=== PATIENT | male | born 1955 | race Caucasian/White ===

== ENCOUNTER 2019-10-07 09:16 | Emergency (ER) | payer MEDICARE ==
[~2019-10-07] VITALS: Ht 182.9 cm; Wt 79.5 kg
[~2019-10-07 09:16] MED LIST: MIRALAX3350 N1 PO
[2019-10-07] MEDS ORDERED: FAMOTIDINE20 M1 PO (09:54)
[2019-10-07] MEDS ORDERED: ABILIFY10 M1 PO (09:54)
[2019-10-07] MEDS ORDERED: XANAX0.5 MG PO (09:55)
[2019-10-07] MEDS ORDERED: MAGNESIUM500 M3 PO (09:55)
[2019-10-07] MEDS ORDERED: INDERAL 20MG TA20 MG PO (09:56)
[2019-10-07 11:22] LABS: ALBUMIN 4.2 g/dL (3.2-5.0); ALKALINE PHOSPHATASE 83 u/l (38-126); BUN 26 mg/dL (8-23); BUN/CREATININE RATIO 20 (12-20 (CALC)); CHLORIDE 108 mmol/l (95-108); CREATININE 1.3 mg/dL (0.7-1.3); GFR 56 ML/MIN (>=60 (CALC)); GFR FOR AFR.AMER. > 60 ML/MIN (>=60 (CALC)); MAGNESIUM 1.9 mg/dL (1.6-2.3); POTASSIUM 5.1 mmol/l (3.5-5.1); SGOT/AST 48 u/l (19-48); SODIUM 137 mmol/l (137-146); TOTAL PROTEIN 7.3 g/dL (6.3-8.2)
[2019-10-07 11:24] LABS: ANION GAP 13 (6-22 (CALC)); BILIRUBIN, TOTAL 1.8 mg/dL (0.0-1.4); CARBON DIOXIDE 21 mmol/l (22-30); HEMATOCRIT 51.7 % (39.0-50.0); IMMATURE GRANULOCYTES 0.4 % (0.0-5.0); MEAN CELL VOLUME 94.3 fL CALC (80.0-100.0); MEAN CORPUSCULAR HGB CONC 32.9 g/dL CAL (32.0-36.0); NEUT# 11.47 thou/uL (1.82-7.42); RED BLOOD COUNT 5.48 mill/uL (4.70-6.10); RED CELL DISTRI WIDTH 14.1 % (11.5-15.5)
[2019-10-07 12:16] LABS: URINE BILIRUBIN - DIPSTICK NEGATIVE (NEGATIVE); URINE BLOOD DIPSTICK SMALL (NEGATIVE); URINE COLOR YELLOW; URINE GLUCOSE - DIPSTICK NEGATIVE (NEGATIVE); URINE KETONE TRACE mg/dL (NEGATIVE); URINE LEUK ESTERASE TRACE (NEGATIVE); URINE NITRITE - DIPSTICK NEGATIVE (Negative); URINE PROTEIN - DIPSTICK NEGATIVE (NEG-TRACE); URINE SPECIFIC GRAVITY >=1.030; URINE UROBILINOGEN - DIPSTICK 0.2 E.U./dL (0.2)
[2019-10-07 12:23] LABS: URINE WBC 20-50 WBC/hpf (0-5)
[2019-10-07 12:24] LABS: URINE BACTERIA MANY hpf
[2019-10-07] MEDS ORDERED: ZOFRAN4 MG/TAB PO (12:33)
[2019-10-07] MEDS ORDERED: HYDROCO/APAP1 TA9 PO (12:33)
[2019-10-07] MEDS ORDERED: TAMSULOSIN0.4 MG PO (12:33)
[2019-10-07 12:50] VITALS: BP 103/58
== END 2019-10-07 12:50 | disposition home or self-care (01) ==
LOC: ED 09:16
PROVIDERS: Student in an Organized Health Care Education/Training Program
DX: N13.2 Hydronephrosis with renal and ureteral calculous obstruction (principal); I10 Essential (primary) hypertension; E83.42 Hypomagnesemia; F17.210 Nicotine dependence, cigarettes, uncomplicated; Z87.442 Personal history of urinary calculi

== ENCOUNTER 2019-10-14 16:19 | Emergency (ER) | payer MEDICARE ==
[~2019-10-14] VITALS: Ht 182.9 cm; Wt 70.0 kg
[~2019-10-14 16:19] MED LIST changes: +ABILIFY10 M1 PO; +FAMOTIDINE20 M1 PO; +HYDROCO/APAP1 TA9 PO; +INDERAL 20MG TA20 MG PO; +MAGNESIUM500 M3 PO; +TAMSULOSIN0.4 MG PO; +XANAX0.5 MG PO; +ZOFRAN4 MG/TAB PO
[2019-10-14 17:32] LABS: IMMATURE GRANULOCYTES 4.2 % (0.0-5.0); MEAN CELL VOLUME 91.8 fL CALC (80.0-100.0); MEAN CORPUSCULAR HGB 31.2 pG CALC (26.0-32.0); MEAN CORPUSCULAR HGB CONC 33.9 g/dL CAL (32.0-36.0); NEUT# 8.13 thou/uL (1.82-7.42); RED BLOOD COUNT 4.17 mill/uL (4.70-6.10); RED CELL DISTRI WIDTH 14.3 % (11.5-15.5)
[2019-10-14 17:36] LABS: HEMATOCRIT 38.3 % (39.0-50.0)
[2019-10-14 17:50] LABS: BILIRUBIN, TOTAL 1.5 mg/dL (0.0-1.4); BUN 17 mg/dL (8-23); BUN/CREATININE RATIO 18 (12-20 (CALC)); CARBON DIOXIDE 24 mmol/l (22-30); CHLORIDE 101 mmol/l (95-108); GFR > 60 ML/MIN (>=60 (CALC)); GFR FOR AFR.AMER. > 60 ML/MIN (>=60 (CALC)); LIPASE 172 u/l (23-300); SGOT/AST 70 u/l (19-48); SODIUM 132 mmol/l (137-146)
[2019-10-14 17:51] LABS: ALBUMIN 2.7 g/dL (3.2-5.0); ALKALINE PHOSPHATASE 148 u/l (38-126); ANION GAP 11 (6-22 (CALC)); POTASSIUM 3.6 mmol/l (3.5-5.1); TOTAL PROTEIN 5.4 g/dL (6.3-8.2)
[2019-10-14 18:51] LABS: URINE BILIRUBIN - DIPSTICK NEGATIVE (NEGATIVE); URINE BLOOD DIPSTICK NEGATIVE (NEGATIVE); URINE COLOR YELLOW; URINE GLUCOSE - DIPSTICK NEGATIVE (NEGATIVE); URINE KETONE NEGATIVE (NEGATIVE); URINE LEUK ESTERASE TRACE (NEGATIVE); URINE NITRITE - DIPSTICK NEGATIVE (Negative); URINE PROTEIN - DIPSTICK 30 mg/dL (NEG-TRACE); URINE SPECIFIC GRAVITY 1.015; URINE UROBILINOGEN - DIPSTICK 0.2 E.U./dL (0.2)
[2019-10-14 18:53] LABS: URINE RBC 0-2 RBC/hpf (0-5)
[2019-10-14 21:20] VITALS: BP 110/70
== END 2019-10-14 21:20 | disposition home or self-care (01) ==
LOC: ED 16:19
PROVIDERS: Family Medicine
DX: R10.31 Right lower quadrant pain (principal); T80.89XA Other complications following infusion, transfusion and therapeutic injection, initial encounter; I10 Essential (primary) hypertension; K21.9 Gastro-esophageal reflux disease without esophagitis; F17.200 Nicotine dependence, unspecified, uncomplicated; Y84.8 Other medical procedures as the cause of abnormal reaction of the patient, or of later complication, without mention of misadventure at the time of the procedure
CPT/HCPCS: Q9967

== ENCOUNTER 2020-09-13 06:42 | Emergency (ER) | payer MEDICARE ==
[~2020-09-13] VITALS: Ht 182.9 cm; Wt 75.6 kg
[2020-09-13] MEDS ORDERED: AMBIEN5 MG PO (07:16)
[2020-09-13 07:36] LABS: HEMATOCRIT 44.9 % (39.0-50.0); HEMOGLOBIN 14.6 g/dl (14.0-18.0); IMMATURE GRANULOCYTES 0.3 % (0.0-5.0); MEAN CELL VOLUME 95.9 fL CALC (80.0-100.0); MEAN CORPUSCULAR HGB 31.2 pG CALC (26.0-32.0); MEAN CORPUSCULAR HGB CONC 32.5 g/dL CAL (32.0-36.0); NEUT# 4.53 thou/uL (1.82-7.42); RED BLOOD COUNT 4.68 mill/uL (4.70-6.10); RED CELL DISTRI WIDTH 14.2 % (11.5-15.5)
[2020-09-13 08:05] LABS: ALBUMIN 3.4 g/dL (3.2-5.0); ALKALINE PHOSPHATASE 64 u/l (38-126); ANION GAP 12 (6-22 (CALC)); BUN 17 mg/dL (8-23); BUN/CREATININE RATIO 25 (12-20 (CALC)); CARBON DIOXIDE 23 mmol/l (22-30); CHLORIDE 110 mmol/l (95-108); CREATININE 0.7 mg/dL (0.7-1.3); GFR > 60 ML/MIN (>=60 (CALC)); GFR FOR AFR.AMER. > 60 ML/MIN (>=60 (CALC)); POTASSIUM 3.8 mmol/l (3.5-5.1); SGOT/AST 42 u/l (19-48); SODIUM 140 mmol/l (137-146); TOTAL PROTEIN 6.4 g/dL (6.3-8.2)
[2020-09-13 08:12] LABS: URINE BILIRUBIN - DIPSTICK NEGATIVE (NEGATIVE); URINE BLOOD DIPSTICK NEGATIVE (NEGATIVE); URINE COLOR YELLOW; URINE GLUCOSE - DIPSTICK NEGATIVE (NEGATIVE); URINE KETONE NEGATIVE (NEGATIVE); URINE LEUK ESTERASE TRACE (NEGATIVE); URINE PROTEIN - DIPSTICK NEGATIVE (NEG-TRACE); URINE SPECIFIC GRAVITY 1.025; URINE UROBILINOGEN - DIPSTICK 0.2 E.U./dL (0.2)
[2020-09-13 08:16] LABS: URINE NITRITE - DIPSTICK NEGATIVE (Negative)
[2020-09-13] MEDS ORDERED: ULTRAM50 M1 PO (08:19)
[2020-09-13 08:27] VITALS: BP 113/60
== END 2020-09-13 08:27 | disposition home or self-care (01) ==
LOC: ED 06:42
PROVIDERS: Emergency Medicine
DX: K40.90 Unilateral inguinal hernia, without obstruction or gangrene, not specified as recurrent (principal); I10 Essential (primary) hypertension; K21.9 Gastro-esophageal reflux disease without esophagitis; F41.9 Anxiety disorder, unspecified; F17.210 Nicotine dependence, cigarettes, uncomplicated

== ENCOUNTER 2020-12-07 17:21 | Emergency (ER) | payer MEDICARE ==
[~2020-12-07] VITALS: Ht 182.9 cm; Wt 70.5 kg
[~2020-12-07 17:21] MED LIST changes: +AMBIEN5 MG PO; +ULTRAM50 M1 PO
[2020-12-07 20:39] LABS: IMMATURE GRANULOCYTES 1.3 % (0.0-5.0); MEAN CORPUSCULAR HGB 29.8 pG CALC (26.0-32.0); MEAN CORPUSCULAR HGB CONC 33.3 g/dL CAL (32.0-36.0); NEUT# 10.58 thou/uL (1.82-7.42); RED BLOOD COUNT 3.86 mill/uL (4.70-6.10); RED CELL DISTRI WIDTH 16.4 % (11.5-15.5)
[2020-12-07 20:41] LABS: HEMATOCRIT 34.5 % (39.0-50.0); HEMOGLOBIN 11.5 g/dl (14.0-18.0); MEAN CELL VOLUME 89.4 fL CALC (80.0-100.0)
[2020-12-07 20:56] LABS: ALBUMIN 3.2 g/dL (3.2-5.0); BUN 17 mg/dL (8-23); BUN/CREATININE RATIO 23 (12-20 (CALC)); CARBON DIOXIDE 24 mmol/l (22-30); CHLORIDE 101 mmol/l (95-108); CREATININE 0.7 mg/dL (0.7-1.3); GFR > 60 ML/MIN (>=60 (CALC)); GFR FOR AFR.AMER. > 60 ML/MIN (>=60 (CALC)); POTASSIUM 3.7 mmol/l (3.5-5.1); TOTAL PROTEIN 6.8 g/dL (6.3-8.2)
[2020-12-07 20:57] LABS: ALKALINE PHOSPHATASE 149 u/l (38-126); ANION GAP 9 (6-22 (CALC)); BILIRUBIN, TOTAL 2.2 mg/dL (0.0-1.4); SGOT/AST 136 u/l (19-48); SODIUM 130 mmol/l (137-146)
[2020-12-07 23:02] LABS: URINE BLOOD DIPSTICK NEGATIVE (NEGATIVE); URINE GLUCOSE - DIPSTICK NEGATIVE (NEGATIVE); URINE KETONE NEGATIVE (NEGATIVE); URINE LEUK ESTERASE TRACE (NEGATIVE); URINE PROTEIN - DIPSTICK NEGATIVE (NEG-TRACE)
[2020-12-07 23:04] LABS: URINE BILIRUBIN - DIPSTICK SMALL (NEGATIVE); URINE COLOR AMBER
[2020-12-07 23:05] LABS: URINE NITRITE - DIPSTICK POSITIVE (Negative)
[2020-12-07 23:09] LABS: URINE BACTERIA FEW hpf
[2020-12-07] MEDS ORDERED: BACTRIM DS1 TAB PO (23:28)
[2020-12-07] MEDS ORDERED: CELEBREX200 MG PO (23:28)
[2020-12-07 23:38] VITALS: BP 98/51
== END 2020-12-08 06:45 | disposition home or self-care (01) ==
LOC: ED 17:21
PROVIDERS: Family Medicine
DX: S39.012A Strain of muscle, fascia and tendon of lower back, initial encounter (principal); N39.0 Urinary tract infection, site not specified; I10 Essential (primary) hypertension; K21.9 Gastro-esophageal reflux disease without esophagitis; F41.9 Anxiety disorder, unspecified; F17.200 Nicotine dependence, unspecified, uncomplicated; B95.61 Methicillin susceptible Staphylococcus aureus infection as the cause of diseases classified elsewhere; X50.0XXA Overexertion from strenuous movement or load, initial encounter

== ENCOUNTER 2020-12-19 10:40 | Emergency (ER) | payer MEDICARE ==
[~2020-12-19] VITALS: Ht 182.9 cm; Wt 80.0 kg
[~2020-12-19 10:40] MED LIST changes: +BACTRIM DS1 TAB PO; +CELEBREX200 MG PO
[2020-12-19 13:06] LABS: HEMATOCRIT 38.6 % (39.0-50.0); HEMOGLOBIN 11.9 g/dl (14.0-18.0); IMMATURE GRANULOCYTES 0.9 % (0.0-5.0); MEAN CELL VOLUME 95.3 fL CALC (80.0-100.0); MEAN CORPUSCULAR HGB 29.4 pG CALC (26.0-32.0); MEAN CORPUSCULAR HGB CONC 30.8 g/dL CAL (32.0-36.0); NEUT# 12.66 thou/uL (1.82-7.42); RED BLOOD COUNT 4.05 mill/uL (4.70-6.10); RED CELL DISTRI WIDTH 17.7 % (11.5-15.5)
[2020-12-19 13:27] LABS: ALBUMIN 3.2 g/dL (3.2-5.0); ALKALINE PHOSPHATASE 158 u/l (38-126); ANION GAP 15 (6-22 (CALC)); BILIRUBIN, TOTAL 1.7 mg/dL (0.0-1.4); BUN 17 mg/dL (8-23); BUN/CREATININE RATIO 27 (12-20 (CALC)); CARBON DIOXIDE 17 mmol/l (22-30); CHLORIDE 106 mmol/l (95-108); CREATININE 0.6 mg/dL (0.7-1.3); GFR > 60 ML/MIN (>=60 (CALC)); GFR FOR AFR.AMER. > 60 ML/MIN (>=60 (CALC)); POTASSIUM 5.1 mmol/l (3.5-5.1); SGOT/AST 59 u/l (19-48); SODIUM 133 mmol/l (137-146)
[2020-12-19] MEDS ORDERED: TRAMADOL HYDROC50 M1 PO (14:52)
[2020-12-19 15:30] VITALS: BP 108/56
== END 2020-12-19 15:30 | disposition home or self-care (01) ==
LOC: ED 10:40
DX: R18.8 Other ascites (principal); D72.829 Elevated white blood cell count, unspecified; M54.59 Other low back pain; I10 Essential (primary) hypertension; K21.9 Gastro-esophageal reflux disease without esophagitis; F41.9 Anxiety disorder, unspecified; F17.200 Nicotine dependence, unspecified, uncomplicated
CPT/HCPCS: Q9967

== ENCOUNTER 2020-12-28 16:11 | Emergency (ER) | payer MEDICARE ==
[~2020-12-28] VITALS: Ht 182.9 cm; Wt 72.0 kg
[~2020-12-28 16:11] MED LIST changes: +TRAMADOL HYDROC50 M1 PO
[2020-12-28 17:16] LABS: GFR > 60 ML/MIN (>=60 (CALC)); GFR FOR AFR.AMER. > 60 ML/MIN (>=60 (CALC))
[2020-12-28 17:24] LABS: HEMATOCRIT 37.4 % (39.0-50.0); IMMATURE GRANULOCYTES 0.5 % (0.0-5.0); MEAN CELL VOLUME 92.1 fL CALC (80.0-100.0); MEAN CORPUSCULAR HGB 29.6 pG CALC (26.0-32.0); MEAN CORPUSCULAR HGB CONC 32.1 g/dL CAL (32.0-36.0); NEUT# 16.59 thou/uL (1.82-7.42); RED BLOOD COUNT 4.06 mill/uL (4.70-6.10); RED CELL DISTRI WIDTH 16.9 % (11.5-15.5)
[2020-12-28 17:44] LABS: ALKALINE PHOSPHATASE 167 u/l (38-126); BILIRUBIN, TOTAL 2.1 mg/dL (0.0-1.4); BUN 25 mg/dL (8-23); BUN/CREATININE RATIO 35 (12-20 (CALC)); CHLORIDE 101 mmol/l (95-108); CREATININE 0.7 mg/dL (0.7-1.3); GFR > 60 ML/MIN (>=60 (CALC)); GFR FOR AFR.AMER. > 60 ML/MIN (>=60 (CALC)); LIPASE 70 u/l (23-300); POTASSIUM 4.4 mmol/l (3.5-5.1); SGOT/AST 63 u/l (19-48); SODIUM 133 mmol/l (137-146); TOTAL PROTEIN 7.5 g/dL (6.3-8.2)
[2020-12-28 17:46] LABS: ANION GAP 11 (6-22 (CALC)); CARBON DIOXIDE 25 mmol/l (22-30)
[2020-12-28 18:30] VITALS: BP 118/56
[2020-12-29] MEDS ORDERED: ALDACTONE25 MG PO (12:18)
[2020-12-29] MEDS ORDERED: LASIX 20 MG TAB20 MG PO (12:18)
== END 2020-12-28 19:38 | disposition left against medical advice (07) ==
LOC: ED 16:11
PROVIDERS: Family Medicine
DX: K65.9 Peritonitis, unspecified (principal); K74.60 Unspecified cirrhosis of liver; B19.20 Unspecified viral hepatitis C without hepatic coma; F10.10 Alcohol abuse, uncomplicated; I10 Essential (primary) hypertension; K21.9 Gastro-esophageal reflux disease without esophagitis; F32.A Depression, unspecified; F41.9 Anxiety disorder, unspecified; F17.200 Nicotine dependence, unspecified, uncomplicated; Z91.19 Patient's noncompliance with other medical treatment and regimen; Z20.822 Contact with and (suspected) exposure to COVID-19

== ENCOUNTER 2020-12-29 07:16 | Observation (INO) | payer MEDICARE ==
[~2020-12-29] VITALS: Ht 182.9 cm; Wt 70.5 kg
[2020-12-29 09:21] LABS: HEMATOCRIT 32.4 % (39.0-50.0); HEMOGLOBIN 10.3 g/dl (14.0-18.0); IMMATURE GRANULOCYTES 0.7 % (0.0-5.0); MEAN CORPUSCULAR HGB 29.3 pG CALC (26.0-32.0); MEAN CORPUSCULAR HGB CONC 31.8 g/dL CAL (32.0-36.0); NEUT# 16.22 thou/uL (1.82-7.42); RED BLOOD COUNT 3.52 mill/uL (4.70-6.10); RED CELL DISTRI WIDTH 16.9 % (11.5-15.5)
[2020-12-29 09:28] LABS: ALBUMIN 2.6 g/dL (3.2-5.0); ALKALINE PHOSPHATASE 151 u/l (38-126); ANION GAP 8 (6-22 (CALC)); BILIRUBIN, TOTAL 1.5 mg/dL (0.0-1.4); BUN 24 mg/dL (8-23); BUN/CREATININE RATIO 38 (12-20 (CALC)); CARBON DIOXIDE 27 mmol/l (22-30); CHLORIDE 100 mmol/l (95-108); CREATININE 0.6 mg/dL (0.7-1.3); GFR > 60 ML/MIN (>=60 (CALC)); GFR FOR AFR.AMER. > 60 ML/MIN (>=60 (CALC)); LIPASE 168 u/l (23-300); SGOT/AST 54 u/l (19-48); SODIUM 131 mmol/l (137-146); TOTAL PROTEIN 6.7 g/dL (6.3-8.2)
[2020-12-29 10:15] LABS: URINE BILIRUBIN - DIPSTICK NEGATIVE (NEGATIVE); URINE BLOOD DIPSTICK TRACE-INTACT (NEGATIVE); URINE COLOR YELLOW; URINE GLUCOSE - DIPSTICK NEGATIVE (NEGATIVE); URINE KETONE NEGATIVE (NEGATIVE); URINE LEUK ESTERASE NEGATIVE (NEGATIVE); URINE PROTEIN - DIPSTICK NEGATIVE (NEG-TRACE); URINE UROBILINOGEN - DIPSTICK 0.2 E.U./dL (0.2)
[2020-12-29 10:31] LABS: URINE NITRITE - DIPSTICK NEGATIVE (Negative)
[2020-12-29] MEDS ORDERED: LASIX 20 MG TAB20 MG PO (12:18)
[2020-12-29] MEDS ORDERED: ALDACTONE25 MG PO (12:18)
[2020-12-29 15:25] VITALS: BP 107/53
[2021-01-05] MEDS ORDERED: ULTRAM50 M1 PO (16:17)
[2021-01-05] MEDS ORDERED: MIRALAX17 GM/SCOO PO (16:22)
== END 2020-12-29 15:35 | disposition home or self-care (01) ==
LOC: ED 07:16 → ED-I 07:51 → ED 07:51 → ED-I 10:11 → ED 10:36 → MS2 10:37 → ED-I 12:15
PROVIDERS: Family Medicine; ADMIT Hospitalist; ATTEND Hospitalist
PROC: 0W9G3ZZ Drainage of Peritoneal Cavity, Percutaneous Approach (ICD-10-PCS; principal; 2020-12-29)
PROC: BW40ZZZ Ultrasonography of Abdomen (ICD-10-PCS; 2020-12-29)
DX: K74.69 Other cirrhosis of liver (principal); R18.8 Other ascites; B19.20 Unspecified viral hepatitis C without hepatic coma; I10 Essential (primary) hypertension; K21.9 Gastro-esophageal reflux disease without esophagitis; F41.9 Anxiety disorder, unspecified; F32.A Depression, unspecified; Z20.822 Contact with and (suspected) exposure to COVID-19

== ENCOUNTER 2021-03-22 14:56 | Observation (INO) | payer MEDICARE ==
[~2021-03-22] VITALS: Ht 182.9 cm; Wt 60.0 kg
[~2021-03-22 14:56] MED LIST changes: +ALDACTONE25 MG PO; +LASIX 20 MG TAB20 MG PO; +MIRALAX17 GM/SCOO PO
--- NOTE | 2021-03-22 14:56 | NUR ---
PT TO ROOM 6 VIA WC ABLE TO STAND AND TRANSFER SELF WITHOUT ASSIST.
[2021-03-22 16:13] LABS: HEMATOCRIT 34.1 % (39.0-50.0); HEMOGLOBIN 10.7 g/dl (14.0-18.0); IMMATURE GRANULOCYTES 0.5 % (0.0-5.0); MEAN CELL VOLUME 92.4 fL CALC (80.0-100.0); MEAN CORPUSCULAR HGB CONC 31.4 g/dL CAL (32.0-36.0); NEUT# 5.8 thou/uL (1.82-7.42); RED BLOOD COUNT 3.69 mill/uL (4.70-6.10); RED CELL DISTRI WIDTH 13.5 % (11.5-15.5)
[2021-03-22 16:30] LABS: INTERNATIONAL NORMALIZED RATIO 1.1 RATIO (0.7-1.3); PROTHROMBIN TIME 11.6 SECONDS (9.0-12.5)
[2021-03-22 16:41] LABS: ALBUMIN 3.3 g/dL (3.2-5.0); ALKALINE PHOSPHATASE 131 u/l (38-126); AMYLASE 72 u/l (30-110); ANION GAP 9 (6-22 (CALC)); BILIRUBIN, TOTAL 0.9 mg/dL (0.0-1.4); BUN 18 mg/dL (8-23); BUN/CREATININE RATIO 29 (12-20 (CALC)); CARBON DIOXIDE 27 mmol/l (22-30); CHLORIDE 106 mmol/l (95-108); CREATININE 0.6 mg/dL (0.7-1.3); GFR > 60 ML/MIN (>=60 (CALC)); GFR FOR AFR.AMER. > 60 ML/MIN (>=60 (CALC)); POTASSIUM 4.1 mmol/l (3.5-5.1); SGOT/AST 25 u/l (19-48); SODIUM 137 mmol/l (137-146); TOTAL PROTEIN 7.7 g/dL (6.3-8.2)
[2021-03-22 16:53] LABS: MYOGLOBIN 13 ng/mL (0 - 121)
--- NOTE | 2021-03-22 17:18 | NUR ---
PT DENIES COMPLAINTS. RESPS EVEN,UNLABBORED
--- NOTE | 2021-03-22 18:24 | NUR ---
PLAN OF CARE UPDATED WITH PT. RESPS EVEN, UNLABBORED.
--- NOTE | 2021-03-22 20:21 | NUR ---
REPORT RECEIVED FROM Marlen RODRÍGUEZ RN
--- NOTE | 2021-03-22 20:22 | NUR ---
PT RESTING. AWARE OF ADMISSION. UP TO BR. PT RETURNED TO ROOM. STATES PAIN IS A 07/25. DR NOTIFIED OF PAIN. TORADOL ORDERED. REPORT CALLED TO RICHARD NAVARRO/[facility].
[2021-03-22 20:30] VITALS: BP 130/90
--- NOTE | 2021-03-22 20:30 | NUR ---
TO FLOOR VIA W/C WITH PORT MONITOR. A/O. FEELS BETTER.
--- NOTE | 2021-03-22 20:50 | NUR ---
PT ARRIVED TO FLOOR VIA WHEELCAHIR ACCOMPANIED BY Dinh VILA LPN.
[2021-03-23] VITALS: BP 100/65
--- NOTE | 2021-03-23 00:15 | NUR ---
PT REQUESTING SLEEPING PILL AT THIS TIME. ADMISTERED PER EMAR.
[2021-03-23 04:00] VITALS: BP 136/73
[2021-03-23 05:48] LABS: HEMATOCRIT 32.5 % (39.0-50.0); HEMOGLOBIN 10.2 g/dl (14.0-18.0); MEAN CELL VOLUME 91.8 fL CALC (80.0-100.0); MEAN CORPUSCULAR HGB 28.8 pG CALC (26.0-32.0); MEAN CORPUSCULAR HGB CONC 31.4 g/dL CAL (32.0-36.0); RED BLOOD COUNT 3.54 mill/uL (4.70-6.10); RED CELL DISTRI WIDTH 13.4 % (11.5-15.5)
[2021-03-23 06:09] LABS: ANION GAP 8 (6-22 (CALC)); BUN 18 mg/dL (8-23); BUN/CREATININE RATIO 28 (12-20 (CALC)); CARBON DIOXIDE 23 mmol/l (22-30); CHLORIDE 110 mmol/l (95-108); CREATININE 0.6 mg/dL (0.7-1.3); GFR > 60 ML/MIN (>=60 (CALC)); GFR FOR AFR.AMER. > 60 ML/MIN (>=60 (CALC)); POTASSIUM 4.1 mmol/l (3.5-5.1); SODIUM 137 mmol/l (137-146)
--- NOTE | 2021-03-23 06:14 | NUR ---
PATIENT SLEEPING SOUNDLY. NO APAPRENT DISTRESS A THIS TIME.
[2021-03-23 07:43] VITALS: BP 110/58
--- NOTE | 2021-03-23 07:53 | NUR ---
PT AWAKE SITTING SEMI FOWELRS UPON ENTERING ROOM. ASSESSMENT AND VITALS ALLOWED AT THIS TIME. LUNG SOUNDS DIMININISHED UPPER/LOWER LOBES. BREATHING IS EVEN AND UNLABORED. HEART SOUNDS ARE REGULAR. PT DENIES CHEST PAIN AT THIS ITME. BOWEL SOUNDS ACTIVE X4. IV LOCATED ON THE LAC 22G, SALINE LOCKED. FLUSHED WITH NO RESISTANCE. TELE MONITOR IN PLACE, CONTINOUS MONITORING BY ED. CALL LIGHT AND PERSONAL ITEMS ARE WITHIN REACH. FALL PRECAUTIONS IN PLACE.
[2021-03-23] MEDS ORDERED: MAGNESIUM500 M1 PO (08:36)
[2021-03-23 12:12] VITALS: BP 100/60
--- NOTE | 2021-03-23 12:15 | NUR ---
PT SITTING ON BED EATING LUNCH AT THIS TIME. STATES FEELING CHEST DISCOMFORT ONLY WHEN BREATHING. TELE MONITOR IS IN PLACE, CONTINOUS MONITORING BY ED. IV PATENT. FALL/SAFTEY PRECAUTIONS ARE IN PLACE. STATES NO OTHER NEEDS AT THIS TIME. CALL LIGHT WITHIN REACH.
[2021-03-23] MEDS ORDERED: ASPIRIN EC LOW81 MG PO (12:29)
--- NOTE | 2021-03-23 14:14 | NUR ---
Discharge instructions given. Patient verbalizes understanding of same. Discharged in stable condition via Wheelchair to Home with RICHARD LUNDY (PUMPER HEAD). All belongings sent with pt. IV REMOVED EVERYTHING INTACT. GAVE A COPY OF INSTRUCTIONS. PT CALLED FOR CAB ABLE TO PAY FOR SELF. UNDERSTANDS TO COME BACK IF WORSENING COMPLAINTS
== END 2021-03-23 14:15 | disposition home or self-care (01) ==
LOC: ED 14:56 → MS2 19:26 → ED 19:29 → ED-I 19:29 → ED 19:30 → ED-I 19:30 → MS2 03-23 14:15
PROVIDERS: Family Medicine; ADMIT Hospitalist; ATTEND Hospitalist
DX: R07.9 Chest pain, unspecified (principal); R05.9 Cough, unspecified; I10 Essential (primary) hypertension; F41.9 Anxiety disorder, unspecified; K21.9 Gastro-esophageal reflux disease without esophagitis; F32.A Depression, unspecified; E83.42 Hypomagnesemia; B19.20 Unspecified viral hepatitis C without hepatic coma; K74.60 Unspecified cirrhosis of liver; F17.200 Nicotine dependence, unspecified, uncomplicated; Z20.822 Contact with and (suspected) exposure to COVID-19
CPT/HCPCS: J1650

== ENCOUNTER 2021-04-06 14:39 | Emergency (ER) | payer MEDICARE ==
[~2021-04-06] VITALS: Ht 182.9 cm; Wt 60.0 kg
[~2021-04-06 14:39] MED LIST changes: +ASPIRIN EC LOW81 MG PO; +MAGNESIUM500 M1 PO
[2021-04-06 18:34] LABS: HEMATOCRIT 27.5 % (39.0-50.0); HEMOGLOBIN 8.7 g/dl (14.0-18.0); IMMATURE GRANULOCYTES 0.5 % (0.0-5.0); MEAN CELL VOLUME 89.9 fL CALC (80.0-100.0); MEAN CORPUSCULAR HGB 28.4 pG CALC (26.0-32.0); MEAN CORPUSCULAR HGB CONC 31.6 g/dL CAL (32.0-36.0); NEUT# 6.77 thou/uL (1.82-7.42); RED BLOOD COUNT 3.06 mill/uL (4.70-6.10); RED CELL DISTRI WIDTH 13.9 % (11.5-15.5)
[2021-04-06 18:52] LABS: ALKALINE PHOSPHATASE 111 u/l (38-126); ANION GAP 11 (6-22 (CALC)); BILIRUBIN, TOTAL 1.2 mg/dL (0.0-1.4); BUN/CREATININE RATIO 60 (12-20 (CALC)); CARBON DIOXIDE 24 mmol/l (22-30); CHLORIDE 107 mmol/l (95-108); CREATININE 0.7 mg/dL (0.7-1.3); GFR > 60 ML/MIN (>=60 (CALC)); GFR FOR AFR.AMER. > 60 ML/MIN (>=60 (CALC)); POTASSIUM 4.2 mmol/l (3.5-5.1); SGOT/AST 24 u/l (19-48); SODIUM 138 mmol/l (137-146); TOTAL PROTEIN 7.1 g/dL (6.3-8.2)
[2021-04-06 18:53] LABS: BUN 42 mg/dL (8-23)
[2021-04-06] MEDS ORDERED: FEOSOL45 MG PO (22:29)
[2021-04-06 22:54] VITALS: BP 131/69
--- NOTE | 2021-04-09 07:34 | NUR ---
PRELIMINARY BLOOD CULTURE SHOWS GRAM (+) COCCI IN 1/4 VIALS, MONITOR FOR FINAL RESULTS PER . FINAL RESULTS SHOW MRSA, RESULTS CALLED TO WHO ADVISED TO HAVE PATIENT RETURN TO THE ER FOR TREATMENT. THE PATIENT WAS CONTACTED AT 0730AM ON 04/09/21 AND REPORTED FEELING WORSE I ADVISED THE PATIENT TO RETURN TO THE ED [facility].
== END 2021-04-06 22:54 | disposition home or self-care (01) ==
LOC: ED 14:39
PROVIDERS: Family Medicine
DX: D64.9 Anemia, unspecified (principal); I10 Essential (primary) hypertension; F41.9 Anxiety disorder, unspecified; B19.20 Unspecified viral hepatitis C without hepatic coma; K21.9 Gastro-esophageal reflux disease without esophagitis; K70.30 Alcoholic cirrhosis of liver without ascites; F17.200 Nicotine dependence, unspecified, uncomplicated; Z20.822 Contact with and (suspected) exposure to COVID-19; R07.9 Chest pain, unspecified; R06.02 Shortness of breath

== ENCOUNTER 2021-04-09 08:53 | Emergency (ER) | payer MEDICARE ==
[~2021-04-09] VITALS: Ht 182.9 cm; Wt 60.0 kg
[~2021-04-09 08:53] MED LIST changes: +FEOSOL45 MG PO
[2021-04-09 10:51] LABS: HEMATOCRIT 22.9 % (39.0-50.0); HEMOGLOBIN 7.1 g/dl (14.0-18.0); IMMATURE GRANULOCYTES 0.4 % (0.0-5.0); MEAN CELL VOLUME 90.9 fL CALC (80.0-100.0); MEAN CORPUSCULAR HGB 28.2 pG CALC (26.0-32.0); NEUT# 1.85 thou/uL (1.82-7.42); RED BLOOD COUNT 2.52 mill/uL (4.70-6.10); RED CELL DISTRI WIDTH 14.1 % (11.5-15.5)
[2021-04-09 10:56] LABS: INTERNATIONAL NORMALIZED RATIO 1.2 RATIO (0.7-1.3); PROTHROMBIN TIME 12.5 SECONDS (9.0-12.5)
[2021-04-09 11:01] LABS: ALBUMIN 2.4 g/dL (3.2-5.0); ALKALINE PHOSPHATASE 90 u/l (38-126); AMYLASE 58 u/l (30-110); ANION GAP 7 (6-22 (CALC)); BILIRUBIN, TOTAL 0.5 mg/dL (0.0-1.4); BUN 19 mg/dL (8-23); BUN/CREATININE RATIO 27 (12-20 (CALC)); C-REACTIVE PROTEIN 2.9 mg/dL (0-0.9); CARBON DIOXIDE 26 mmol/l (22-30); CHLORIDE 109 mmol/l (95-108); CREATININE 0.7 mg/dL (0.7-1.3); GFR > 60 ML/MIN (>=60 (CALC)); GFR FOR AFR.AMER. > 60 ML/MIN (>=60 (CALC)); LIPASE 109 u/l (23-300); MAGNESIUM 1.8 mg/dL (1.6-2.3); POTASSIUM 3.1 mmol/l (3.5-5.1); SGOT/AST 27 u/l (19-48); SODIUM 139 mmol/l (137-146); TOTAL PROTEIN 5.9 g/dL (6.3-8.2)
[2021-04-09 11:28] LABS: TSH, 3RD GENERATION 2.42 uIU/mL (0.47 - 4.68)
[2021-04-09 13:12] VITALS: BP 100/55
[2021-04-09 13:16] LABS: URINE BILIRUBIN - DIPSTICK NEGATIVE (NEGATIVE); URINE BLOOD DIPSTICK NEGATIVE (NEGATIVE); URINE COLOR YELLOW; URINE GLUCOSE - DIPSTICK NEGATIVE (NEGATIVE); URINE KETONE NEGATIVE (NEGATIVE); URINE LEUK ESTERASE NEGATIVE (NEGATIVE); URINE PROTEIN - DIPSTICK NEGATIVE (NEG-TRACE); URINE SPECIFIC GRAVITY 1.025; URINE UROBILINOGEN - DIPSTICK 0.2 E.U./dL (0.2)
[2021-04-09 13:18] VITALS: BP 100/55
[2021-04-09 13:18] LABS: URINE NITRITE - DIPSTICK NEGATIVE (Negative)
[2021-04-09 13:27] VITALS: BP 93/55
[2021-04-09 13:36] VITALS: BP 100/59
[2021-04-09 14:25] VITALS: BP 95/53
[2021-04-09 15:18] VITALS: BP 95/53
== END 2021-04-09 14:45 ==
LOC: ED 08:53 → ED-I 10:08 → ED 14:45
PROVIDERS: Emergency Medicine
DX: R78.81 Bacteremia (principal); D61.818 Other pancytopenia; E87.6 Hypokalemia; R19.5 Other fecal abnormalities; I10 Essential (primary) hypertension; F41.9 Anxiety disorder, unspecified; F32.A Depression, unspecified; K21.9 Gastro-esophageal reflux disease without esophagitis; R62.7 Adult failure to thrive; K70.30 Alcoholic cirrhosis of liver without ascites; F17.200 Nicotine dependence, unspecified, uncomplicated; Z68.1 Body mass index [BMI] 19.9 or less, adult; Z86.19 Personal history of other infectious and parasitic diseases; Z20.822 Contact with and (suspected) exposure to COVID-19
CPT/HCPCS: P9016

== ENCOUNTER 2021-05-05 22:34 | Emergency (ER) | payer MEDICARE ==
[~2021-05-05] VITALS: Ht 182.9 cm; Wt 62.0 kg
[~2021-05-05 22:34] MED LIST changes: -INDERAL 20MG TA20 MG PO; +INDERAL10 MG PO
[2021-05-05 23:36] LABS: MEAN CELL VOLUME 88.3 fL CALC (80.0-100.0); MEAN CORPUSCULAR HGB 27.1 pG CALC (26.0-32.0); MEAN CORPUSCULAR HGB CONC 30.7 g/dL CAL (32.0-36.0); NEUT# 2.13 thou/uL (1.82-7.42); RED BLOOD COUNT 3.43 mill/uL (4.70-6.10); RED CELL DISTRI WIDTH 14.7 % (11.5-15.5)
[2021-05-05 23:48] LABS: ALBUMIN 3.1 g/dL (3.2-5.0); ALKALINE PHOSPHATASE 156 u/l (38-126); ANION GAP 10 (6-22 (CALC)); BILIRUBIN, TOTAL 0.7 mg/dL (0.0-1.4); BUN 15 mg/dL (8-23); BUN/CREATININE RATIO 21 (12-20 (CALC)); CARBON DIOXIDE 23 mmol/l (22-30); CHLORIDE 111 mmol/l (95-108); CREATININE 0.7 mg/dL (0.7-1.3); GFR > 60 ML/MIN (>=60 (CALC)); GFR FOR AFR.AMER. > 60 ML/MIN (>=60 (CALC)); POTASSIUM 3.8 mmol/l (3.5-5.1); SGOT/AST 171 u/l (19-48); SODIUM 140 mmol/l (137-146); TOTAL PROTEIN 6.7 g/dL (6.3-8.2)
[2021-05-05 23:52] LABS: HEMATOCRIT 30.3 % (39.0-50.0); HEMOGLOBIN 9.3 g/dl (14.0-18.0)
[2021-05-06] LABS: MYOGLOBIN 13 ng/mL (0 - 121)
[2021-05-06 01:00] LABS: ACT PARTIAL THROMBO TIME 30.8 SECONDS (20.0-32.5); INTERNATIONAL NORMALIZED RATIO 1.2 RATIO (0.7-1.3); PROTHROMBIN TIME 12.1 SECONDS (9.0-12.5)
[2021-05-06 02:41] VITALS: BP 101/67
== END 2021-05-06 01:50 | disposition short-term general hospital (02) ==
LOC: ED 22:34
PROVIDERS: Emergency Medicine
DX: R07.9 Chest pain, unspecified (principal); R79.89 Other specified abnormal findings of blood chemistry; I10 Essential (primary) hypertension; F41.9 Anxiety disorder, unspecified; K21.9 Gastro-esophageal reflux disease without esophagitis; B19.20 Unspecified viral hepatitis C without hepatic coma; K74.60 Unspecified cirrhosis of liver; F17.210 Nicotine dependence, cigarettes, uncomplicated; Z20.822 Contact with and (suspected) exposure to COVID-19
CPT/HCPCS: J1644

== ENCOUNTER 2021-07-03 09:39 | Emergency (ER) | payer MEDICARE ==
[2021-07-03] VITALS (7 sets, daily range): BP systolic 115–136; BP diastolic 66–75
[~2021-07-03] VITALS: Ht 182.9 cm; Wt 66.0 kg
[2021-07-03] MEDS ORDERED: HYDROCO/APAP1 TA9 PO (09:58)
[2021-07-03 11:21] LABS: HEMATOCRIT 31.4 % (39.0-50.0); HEMOGLOBIN 9.3 g/dl (14.0-18.0); IMMATURE GRANULOCYTES 0.3 % (0.0-5.0); MEAN CELL VOLUME 79.9 fL CALC (80.0-100.0); MEAN CORPUSCULAR HGB 23.7 pG CALC (26.0-32.0); MEAN CORPUSCULAR HGB CONC 29.6 g/dL CAL (32.0-36.0); NEUT# 9.66 thou/uL (1.82-7.42); RED BLOOD COUNT 3.93 mill/uL (4.70-6.10); RED CELL DISTRI WIDTH 15.6 % (11.5-15.5)
[2021-07-03 11:36] LABS: ALBUMIN 3.2 g/dL (3.2-5.0); ALKALINE PHOSPHATASE 107 u/l (38-126); ANION GAP 10 (6-22 (CALC)); BILIRUBIN, TOTAL 1.7 mg/dL (0.0-1.4); BUN 21 mg/dL (8-23); BUN/CREATININE RATIO 31 (12-20 (CALC)); CARBON DIOXIDE 23 mmol/l (22-30); CHLORIDE 107 mmol/l (95-108); CREATININE 0.7 mg/dL (0.7-1.3); GFR > 60 ML/MIN (>=60 (CALC)); GFR FOR AFR.AMER. > 60 ML/MIN (>=60 (CALC)); POTASSIUM 4.4 mmol/l (3.5-5.1); SGOT/AST 47 u/l (19-48); SODIUM 135 mmol/l (137-146); TOTAL PROTEIN 6.6 g/dL (6.3-8.2)
[2021-07-03 11:39] LABS: ACT PARTIAL THROMBO TIME 30.4 SECONDS (20.0-32.5); INTERNATIONAL NORMALIZED RATIO 1.3 RATIO (0.7-1.3); PROTHROMBIN TIME 13.5 SECONDS (9.0-12.5)
== END 2021-07-03 12:30 | disposition short-term general hospital (02) ==
LOC: ED 09:39
DX: S72.001A Fracture of unspecified part of neck of right femur, initial encounter for closed fracture (principal); I10 Essential (primary) hypertension; K21.9 Gastro-esophageal reflux disease without esophagitis; F41.9 Anxiety disorder, unspecified; F17.200 Nicotine dependence, unspecified, uncomplicated; W01.0XXA Fall on same level from slipping, tripping and stumbling without subsequent striking against object, initial encounter; Y92.009 Unspecified place in unspecified non-institutional (private) residence as the place of occurrence of the external cause
CPT/HCPCS: J0878

== ENCOUNTER 2021-07-27 10:07 | Emergency (ER) | payer MEDICARE ==
[~2021-07-27] VITALS: Ht 182.9 cm; Wt 67.5 kg
[2021-07-27 11:00] VITALS: BP 105/67
[2021-07-27 11:12] LABS: HEMATOCRIT 37.2 % (39.0-50.0); HEMOGLOBIN 11.1 g/dl (14.0-18.0); IMMATURE GRANULOCYTES 0.2 % (0.0-5.0); MEAN CELL VOLUME 83.8 fL CALC (80.0-100.0); MEAN CORPUSCULAR HGB CONC 29.8 g/dL CAL (32.0-36.0); NEUT# 3.58 thou/uL (1.82-7.42); RED BLOOD COUNT 4.44 mill/uL (4.70-6.10)
[2021-07-27 11:30] VITALS: BP 106/70
[2021-07-27 11:36] LABS: ALBUMIN 3.6 g/dL (3.2-5.0); ALKALINE PHOSPHATASE 141 u/l (38-126); ANION GAP 10 (6-22 (CALC)); BUN 24 mg/dL (8-23); BUN/CREATININE RATIO 29 (12-20 (CALC)); CARBON DIOXIDE 26 mmol/l (22-30); CHLORIDE 109 mmol/l (95-108); CREATININE 0.8 mg/dL (0.7-1.3); GFR > 60 ML/MIN (>=60 (CALC)); GFR FOR AFR.AMER. > 60 ML/MIN (>=60 (CALC)); LIPASE 76 u/l (23-300); POTASSIUM 4.6 mmol/l (3.5-5.1); SGOT/AST 38 u/l (19-48); SODIUM 140 mmol/l (137-146); TOTAL PROTEIN 7.2 g/dL (6.3-8.2)
[2021-07-27 11:37] LABS: BILIRUBIN, TOTAL 0.8 mg/dL (0.0-1.4)
[2021-07-27 12:30] VITALS: BP 107/71
[2021-07-27 13:00] VITALS: BP 105/68
[2021-07-27 13:42] VITALS: BP 105/68
[2021-07-27] MEDS ORDERED: TRAMADOL HCL50 MG PO (13:49)
== END 2021-07-27 13:50 | disposition home or self-care (01) ==
LOC: ED 10:07
PROVIDERS: Family Medicine
DX: R10.84 Generalized abdominal pain (principal); I10 Essential (primary) hypertension; K21.9 Gastro-esophageal reflux disease without esophagitis; K70.30 Alcoholic cirrhosis of liver without ascites; F41.9 Anxiety disorder, unspecified
CPT/HCPCS: Q9967

== ENCOUNTER 2021-09-12 19:05 | Inpatient (IN) | payer MEDICARE ==
[2021-09-12] VITALS (9 sets, daily range): BP systolic 123–139; BP diastolic 77–86
[~2021-09-12] VITALS: Ht 182.9 cm; Wt 68.0 kg
[~2021-09-12 19:05] MED LIST changes: +TRAMADOL HCL50 MG PO
[2021-09-12 21:09] LABS: HEMATOCRIT 38.8 % (39.0-50.0); HEMOGLOBIN 11.5 g/dl (14.0-18.0); IMMATURE GRANULOCYTES 0.1 % (0.0-5.0); MEAN CELL VOLUME 80.8 fL CALC (80.0-100.0); MEAN CORPUSCULAR HGB CONC 29.6 g/dL CAL (32.0-36.0); NEUT# 12.74 thou/uL (1.82-7.42); RED BLOOD COUNT 4.8 mill/uL (4.70-6.10); RED CELL DISTRI WIDTH 18.2 % (11.5-15.5)
[2021-09-12 21:26] LABS: INTERNATIONAL NORMALIZED RATIO 1.3 RATIO (0.7-1.3); PROTHROMBIN TIME 13.7 SECONDS (9.0-12.5)
[2021-09-12 21:30] LABS: ALKALINE PHOSPHATASE 91 u/l (38-126); AMYLASE 51 u/l (30-110); ANION GAP 14 (6-22 (CALC)); BILIRUBIN, TOTAL 1.6 mg/dL (0.0-1.4); BUN 39 mg/dL (8-23); BUN/CREATININE RATIO 49 (12-20 (CALC)); CARBON DIOXIDE 30 mmol/l (22-30); CHLORIDE 102 mmol/l (95-108); CREATININE 0.8 mg/dL (0.7-1.3); ETHYL ALCOHOL 0 mg/dl (0-30); GFR FOR AFR.AMER. > 60 ML/MIN (>=60 (CALC)); GFR OTHER RACES > 60 ML/MIN (>=60 (CALC)); LIPASE 28 u/l (23-300); SGOT/AST 53 u/l (19-48); SODIUM 141 mmol/l (137-146); TOTAL PROTEIN 7.5 g/dL (6.3-8.2)
[2021-09-12 21:40] LABS: MYOGLOBIN 73 ng/mL (0 - 121)
[2021-09-13] VITALS (18 sets, daily range): BP systolic 87–135; BP diastolic 36–79
[2021-09-13] MEDS ORDERED: ALDACTONE25 MG PO (09:41)
[2021-09-13] MEDS ORDERED: GABAPENTIN300 M2 PO (09:41)
[2021-09-13] MEDS ORDERED: ZOLPIDEM5 M1 PO (09:42)
[2021-09-14] VITALS (11 sets, daily range): BP systolic 82–111; BP diastolic 33–54
[2021-09-14 05:41] LABS: IMMATURE GRANULOCYTES 0.3 % (0.0-5.0); MEAN CELL VOLUME 84.7 fL CALC (80.0-100.0); MEAN CORPUSCULAR HGB 24.3 pG CALC (26.0-32.0); MEAN CORPUSCULAR HGB CONC 28.8 g/dL CAL (32.0-36.0); NEUT# 2.25 thou/uL (1.82-7.42); RED BLOOD COUNT 3.78 mill/uL (4.70-6.10); RED CELL DISTRI WIDTH 18.2 % (11.5-15.5)
[2021-09-14 05:52] LABS: ALKALINE PHOSPHATASE 65 u/l (38-126); ANION GAP 7 (6-22 (CALC)); BUN 30 mg/dL (8-23); BUN/CREATININE RATIO 38 (12-20 (CALC)); CARBON DIOXIDE 24 mmol/l (22-30); CHLORIDE 111 mmol/l (95-108); CREATININE 0.8 mg/dL (0.7-1.3); GFR FOR AFR.AMER. > 60 ML/MIN (>=60 (CALC)); GFR OTHER RACES > 60 ML/MIN (>=60 (CALC)); POTASSIUM 4.2 mmol/l (3.5-5.1); SGOT/AST 38 u/l (19-48); SODIUM 138 mmol/l (137-146)
[2021-09-14 05:56] LABS: ALBUMIN 2.7 g/dL (3.2-5.0); BILIRUBIN, TOTAL 0.7 mg/dL (0.0-1.4); TOTAL PROTEIN 5.6 g/dL (6.3-8.2)
[2021-09-14 05:57] LABS: HEMOGLOBIN 9.2 g/dl (14.0-18.0)
[2021-09-14 11:38] LABS: URINE BILIRUBIN - DIPSTICK NEGATIVE (NEGATIVE); URINE BLOOD DIPSTICK NEGATIVE (NEGATIVE); URINE COLOR YELLOW; URINE GLUCOSE - DIPSTICK NEGATIVE (NEGATIVE); URINE KETONE NEGATIVE (NEGATIVE); URINE LEUK ESTERASE NEGATIVE (NEGATIVE); URINE PROTEIN - DIPSTICK NEGATIVE (NEG-TRACE); URINE UROBILINOGEN - DIPSTICK 0.2 E.U./dL (0.2)
[2021-09-14 11:39] LABS: URINE NITRITE - DIPSTICK NEGATIVE (Negative)
[2021-09-14 12:56] LABS: HEMATOCRIT 28.1 % (39.0-50.0); HEMOGLOBIN 8.1 g/dl (14.0-18.0)
[2021-09-14 18:30] LABS: HEMATOCRIT 27.6 % (39.0-50.0); HEMOGLOBIN 8.3 g/dl (14.0-18.0)
[2021-09-15] VITALS: BP 116/45
[2021-09-15 00:22] LABS: HEMATOCRIT 28.4 % (39.0-50.0); HEMOGLOBIN 8.2 g/dl (14.0-18.0)
[2021-09-15 04:14] VITALS: BP 105/30
[2021-09-15 07:42] VITALS: BP 101/48
[2021-09-15] MEDS ORDERED: PERCOCET 5/321 COMBO PO (12:59)
== END 2021-09-15 13:30 | disposition home or self-care (01) | DRG 355 ==
LOC: ED 19:05 → ED-I 21:02 → ED 21:02 → ED-I 09-13 00:20 → ED 09-13 00:54 → MS2 09-13 00:55
PROVIDERS: Emergency Medicine; ADMIT Surgery; ATTEND Surgery
PROC: 0WQF0ZZ Repair Abdominal Wall, Open Approach (ICD-10-PCS; principal; 2021-09-13)
PROC: 05H633Z Insertion of Infusion Device into Left Subclavian Vein, Percutaneous Approach (ICD-10-PCS; 2021-09-13)
DX: K42.0 Umbilical hernia with obstruction, without gangrene (principal); K70.30 Alcoholic cirrhosis of liver without ascites; I10 Essential (primary) hypertension; I95.9 Hypotension, unspecified; D64.9 Anemia, unspecified; K21.9 Gastro-esophageal reflux disease without esophagitis; F41.9 Anxiety disorder, unspecified; F32.A Depression, unspecified; B19.20 Unspecified viral hepatitis C without hepatic coma; F10.11 Alcohol abuse, in remission; Z87.891 Personal history of nicotine dependence; Z20.822 Contact with and (suspected) exposure to COVID-19
CPT/HCPCS: Q9967; S0164

== ENCOUNTER 2021-11-21 21:21 | Emergency (ER) | payer MEDICARE ==
[~2021-11-21] VITALS: Ht 182.9 cm; Wt 72.7 kg
[2021-11-21] VITALS (8 sets, daily range): BP systolic 114–134; BP diastolic 50–78
[~2021-11-21 21:21] MED LIST changes: +GABAPENTIN300 M2 PO; +PERCOCET 5/321 COMBO PO; +ZOLPIDEM5 M1 PO
[2021-11-21 22:12] LABS: HEMATOCRIT 40.5 % (39.0-50.0); HEMOGLOBIN 12.3 g/dl (14.0-18.0); IMMATURE GRANULOCYTES 0.1 % (0.0-5.0); MEAN CELL VOLUME 76.3 fL CALC (80.0-100.0); MEAN CORPUSCULAR HGB 23.2 pG CALC (26.0-32.0); MEAN CORPUSCULAR HGB CONC 30.4 g/dL CAL (32.0-36.0); NEUT# 5.69 thou/uL (1.82-7.42); RED BLOOD COUNT 5.31 mill/uL (4.70-6.10); RED CELL DISTRI WIDTH 20.4 % (11.5-15.5)
[2021-11-21 22:21] LABS: ALKALINE PHOSPHATASE 74 u/l (38-126); ANION GAP 11 (6-22 (CALC)); BILIRUBIN, TOTAL 1.6 mg/dL (0.0-1.4); BUN 17 mg/dL (8-23); BUN/CREATININE RATIO 24 (12-20 (CALC)); CARBON DIOXIDE 26 mmol/l (22-30); CHLORIDE 105 mmol/l (95-108); CREATININE 0.7 mg/dL (0.7-1.3); GFR FOR AFR.AMER. > 60 ML/MIN (>=60 (CALC)); GFR OTHER RACES > 60 ML/MIN (>=60 (CALC)); POTASSIUM 4.3 mmol/l (3.5-5.1); SODIUM 138 mmol/l (137-146); TOTAL PROTEIN 7.6 g/dL (6.3-8.2)
[2021-11-21 22:22] LABS: SGOT/AST 76 u/l (19-48)
[2021-11-22] VITALS (68 sets, daily range): BP systolic 70–117; BP diastolic 36–70
== END 2021-11-22 06:30 | disposition home or self-care (01) ==
LOC: ED 21:21
PROVIDERS: Family Medicine
DX: T84.020A Dislocation of internal right hip prosthesis, initial encounter (principal)

== ENCOUNTER 2021-12-30 19:50 | Emergency (ER) | payer MEDICARE ==
[~2021-12-30] VITALS: Ht 182.9 cm; Wt 70.0 kg
[2021-12-30] VITALS (10 sets, daily range): BP systolic 121–136; BP diastolic 67–80
[2021-12-30 23:12] LABS: HEMOGLOBIN 11.3 g/dl (14.0-18.0); IMMATURE GRANULOCYTES 0.1 % (0.0-5.0); MEAN CELL VOLUME 79.1 fL CALC (80.0-100.0); MEAN CORPUSCULAR HGB 24.8 pG CALC (26.0-32.0); MEAN CORPUSCULAR HGB CONC 31.4 g/dL CAL (32.0-36.0); NEUT# 6.2 thou/uL (1.82-7.42); RED BLOOD COUNT 4.55 mill/uL (4.70-6.10); RED CELL DISTRI WIDTH 19.3 % (11.5-15.5)
[2021-12-30 23:28] LABS: ALBUMIN 3.6 g/dL (3.2-5.0); ALKALINE PHOSPHATASE 91 u/l (38-126); ANION GAP 14 (6-22 (CALC)); BILIRUBIN, TOTAL 1.2 mg/dL (0.0-1.4); BUN 15 mg/dL (8-23); BUN/CREATININE RATIO 21 (12-20 (CALC)); CARBON DIOXIDE 18 mmol/l (22-30); CHLORIDE 104 mmol/l (95-108); CREATININE 0.7 mg/dL (0.7-1.3); GFR FOR AFR.AMER. > 60 ML/MIN (>=60 (CALC)); GFR OTHER RACES > 60 ML/MIN (>=60 (CALC)); POTASSIUM 4.1 mmol/l (3.5-5.1); SGOT/AST 33 u/l (19-48); TOTAL PROTEIN 7.1 g/dL (6.3-8.2)
[2021-12-30 23:30] LABS: SODIUM 132 mmol/l (137-146)
[2021-12-30 23:40] LABS: MYOGLOBIN 26 ng/mL (0 - 121)
[2021-12-31 01:06] VITALS: BP 127/75
== END 2021-12-31 01:18 | disposition home or self-care (01) ==
LOC: ED 19:50
PROVIDERS: Emergency Medicine
DX: M79.10 Myalgia, unspecified site (principal); I10 Essential (primary) hypertension; F41.9 Anxiety disorder, unspecified; K21.9 Gastro-esophageal reflux disease without esophagitis; B19.20 Unspecified viral hepatitis C without hepatic coma; K74.60 Unspecified cirrhosis of liver

== ENCOUNTER 2022-05-17 07:55 | Emergency (ER) | payer MEDICARE ==
[~2022-05-17] VITALS: Ht 182.9 cm; Wt 68.0 kg
[2022-05-17 08:12] VITALS: BP 105/67
[2022-05-17 08:15] VITALS: BP 106/57
[2022-05-17 08:30] VITALS: BP 95/64
[2022-05-17] MEDS ORDERED: OMNICEF300 M1 PO (08:30)
[2022-05-17 08:45] VITALS: BP 94/58
[2022-05-17 09:20] VITALS: BP 94/58
== END 2022-05-17 09:27 | disposition home or self-care (01) ==
LOC: ED 07:55
DX: S51.811A Laceration without foreign body of right forearm, initial encounter (principal); I10 Essential (primary) hypertension; F41.9 Anxiety disorder, unspecified; K21.9 Gastro-esophageal reflux disease without esophagitis; B19.20 Unspecified viral hepatitis C without hepatic coma; K74.60 Unspecified cirrhosis of liver; W22.8XXA Striking against or struck by other objects, initial encounter; Y92.009 Unspecified place in unspecified non-institutional (private) residence as the place of occurrence of the external cause

== ENCOUNTER 2022-11-12 04:34 | Emergency (ER) | payer MEDICARE ==
[~2022-11-12] VITALS: Ht 182.9 cm; Wt 66.0 kg
[~2022-11-12 04:34] MED LIST changes: +OMNICEF300 M1 PO
[2022-11-12 04:49] VITALS: BP 107/58
[2022-11-12 05:00] VITALS: BP 98/67
[2022-11-12 05:49] LABS: BASO% 0.5 % (0-3); EOS% 3.1 % (0-8); HEMATOCRIT 40.9 % (39.0-50.0); HEMOGLOBIN 12.9 g/dl (14.0-18.0); LYMPH% 8.2 % (15-41); MEAN CELL VOLUME 83.6 fL CALC (80.0-100.0); MEAN CORPUSCULAR HGB 26.4 pG CALC (26.0-32.0); MEAN CORPUSCULAR HGB CONC 31.5 g/dL CAL (32.0-36.0); MONO% 10.8 % (2-13); NEUT# 4.37 thou/uL (1.82-7.42); NEUT% 76.4 % (42-76); RED BLOOD COUNT 4.89 mill/uL (4.70-6.10); RED CELL DISTRI WIDTH 17.8 % (11.5-15.5)
[2022-11-12 07:14] LABS: BUN 20 mg/dL (8-23); BUN/CREATININE RATIO 24 (12-20 (CALC)); CHLORIDE 110 mmol/l (95-108); CREATININE 0.8 mg/dL (0.7-1.3); ETHYL ALCOHOL 0 mg/dl (0-30); GFR FOR AFR.AMER. > 60 ML/MIN (>=60 (CALC)); GFR OTHER RACES > 60 ML/MIN (>=60 (CALC)); POTASSIUM 4.3 mmol/l (3.5-5.1); SODIUM 137 mmol/l (137-146)
[2022-11-12 07:22] LABS: ANION GAP 8 (6-22 (CALC)); CARBON DIOXIDE 23 mmol/l (22-30)
[2022-11-12 07:48] VITALS: BP 100/58
[2022-11-12 08:00] VITALS: BP 100/65
[2022-11-12] MEDS ORDERED: ORPHENADRINE C100 M1 PO (08:01)
[2022-11-12 08:28] VITALS: BP 100/65
== END 2022-11-12 08:30 | disposition home or self-care (01) ==
LOC: ED 04:34
PROVIDERS: Family Medicine
DX: M79.18 Myalgia, other site (principal); I10 Essential (primary) hypertension; F41.9 Anxiety disorder, unspecified; K21.9 Gastro-esophageal reflux disease without esophagitis; B19.20 Unspecified viral hepatitis C without hepatic coma; K74.60 Unspecified cirrhosis of liver

== ENCOUNTER 2022-11-16 02:31 | Inpatient (IN) | payer MEDICARE ==
[~2022-11-16] VITALS: Ht 182.9 cm; Wt 69.9 kg
[2022-11-16] VITALS (44 sets, daily range): BP systolic 79–179; BP diastolic 42–154
[~2022-11-16 02:31] MED LIST changes: +ORPHENADRINE C100 M1 PO
[2022-11-16 03:16] LABS: BASO% 0.2 % (0-3); EOS% 0.1 % (0-8); HEMOGLOBIN 13.3 g/dl (14.0-18.0); IMMATURE GRANULOCYTES 0.4 % (0.0-5.0); LYMPH% 4.5 % (15-41); MEAN CELL VOLUME 82.2 fL CALC (80.0-100.0); MEAN CORPUSCULAR HGB 26.7 pG CALC (26.0-32.0); MEAN CORPUSCULAR HGB CONC 32.4 g/dL CAL (32.0-36.0); MONO% 7.1 % (2-13); NEUT# 11.64 thou/uL (1.82-7.42); NEUT% 87.7 % (42-76); RED BLOOD COUNT 4.99 mill/uL (4.70-6.10); RED CELL DISTRI WIDTH 17.5 % (11.5-15.5)
[2022-11-16 03:31] LABS: ALBUMIN 3.6 g/dL (3.2-5.0); ALKALINE PHOSPHATASE 95 u/l (38-126); ANION GAP 13 (6-22 (CALC)); BUN 29 mg/dL (8-23); BUN/CREATININE RATIO 27 (12-20 (CALC)); CARBON DIOXIDE 24 mmol/l (22-30); CHLORIDE 105 mmol/l (95-108); CREATININE 1.1 mg/dL (0.7-1.3); GFR FOR AFR.AMER. > 60 ML/MIN (>=60 (CALC)); GFR OTHER RACES > 60 ML/MIN (>=60 (CALC)); POTASSIUM 4.4 mmol/l (3.5-5.1); SGOT/AST 52 u/l (19-48); SODIUM 138 mmol/l (137-146); TOTAL PROTEIN 7.7 g/dL (6.3-8.2)
[2022-11-16 03:37] LABS: BILIRUBIN, TOTAL 2.2 mg/dL (0.2-1.3)
[2022-11-16 03:40] LABS: INTERNATIONAL NORMALIZED RATIO 1.4 RATIO (0.7-1.3); PROTHROMBIN TIME 12.9 SECONDS (9.0-12.5)
[2022-11-16 05:23] LABS: URINE BILIRUBIN - DIPSTICK Negative (NEGATIVE); URINE BLOOD DIPSTICK Trace-intact (NEGATIVE); URINE GLUCOSE - DIPSTICK Negative (NEGATIVE); URINE NITRITE - DIPSTICK Negative (Negative); URINE PROTEIN - DIPSTICK 30 mg/dL (NEG-TRACE)
[2022-11-16 05:24] LABS: URINE COLOR Yellow; URINE KETONE Negative (NEGATIVE); URINE LEUK ESTERASE Large (NEGATIVE)
[2022-11-16 05:25] LABS: URINE BACTERIA MODERATE hpf; URINE EPITHELIAL CELLS MODERATE EPI/hpf (0-FEW); URINE WBC 20-50 WBC/hpf (0-5)
[2022-11-16 13:24] LABS: ALKALINE PHOSPHATASE 68 u/l (38-126); ANION GAP 10 (6-22 (CALC)); BILIRUBIN, TOTAL 1.6 mg/dL (0.2-1.3); BUN 28 mg/dL (8-23); BUN/CREATININE RATIO 35 (12-20 (CALC)); CARBON DIOXIDE 21 mmol/l (22-30); CHLORIDE 111 mmol/l (95-108); CREATININE 0.8 mg/dL (0.7-1.3); GFR FOR AFR.AMER. > 60 ML/MIN (>=60 (CALC)); GFR OTHER RACES > 60 ML/MIN (>=60 (CALC)); POTASSIUM 4.2 mmol/l (3.5-5.1); SGOT/AST 35 u/l (19-48); SODIUM 138 mmol/l (137-146)
[2022-11-16 13:28] LABS: ALBUMIN 2.5 g/dL (3.2-5.0); TOTAL PROTEIN 5.5 g/dL (6.3-8.2)
[2022-11-16 23:22] LABS: BASO% 0.1 % (0-3); EOS% 0.3 % (0-8); HEMATOCRIT 40.9 % (39.0-50.0); HEMOGLOBIN 12.8 g/dl (14.0-18.0); IMMATURE GRANULOCYTES 0.6 % (0.0-5.0); LYMPH% 4.8 % (15-41); MEAN CORPUSCULAR HGB CONC 31.3 g/dL CAL (32.0-36.0); MONO% 10.6 % (2-13); NEUT# 16.86 thou/uL (1.82-7.42); NEUT% 83.6 % (42-76); RED BLOOD COUNT 4.93 mill/uL (4.70-6.10); RED CELL DISTRI WIDTH 17.2 % (11.5-15.5)
[2022-11-16 23:41] LABS: ALBUMIN 2.7 g/dL (3.2-5.0); ALKALINE PHOSPHATASE 92 u/l (38-126); ANION GAP 12 (6-22 (CALC)); BILIRUBIN, TOTAL 1.6 mg/dL (0.2-1.3); BUN 26 mg/dL (8-23); BUN/CREATININE RATIO 33 (12-20 (CALC)); CARBON DIOXIDE 18 mmol/l (22-30); CHLORIDE 112 mmol/l (95-108); CREATININE 0.8 mg/dL (0.7-1.3); GFR FOR AFR.AMER. > 60 ML/MIN (>=60 (CALC)); GFR OTHER RACES > 60 ML/MIN (>=60 (CALC)); POTASSIUM 4.2 mmol/l (3.5-5.1); SGOT/AST 44 u/l (19-48); SODIUM 138 mmol/l (137-146); TOTAL PROTEIN 6.1 g/dL (6.3-8.2)
[2022-11-17] VITALS (97 sets, daily range): BP systolic 75–177; BP diastolic 37–108
[2022-11-17 06:53] LABS: HEMATOCRIT 37.5 % (39.0-50.0); MEAN CELL VOLUME 82.2 fL CALC (80.0-100.0); MEAN CORPUSCULAR HGB 26.3 pG CALC (26.0-32.0); RED BLOOD COUNT 4.56 mill/uL (4.70-6.10); RED CELL DISTRI WIDTH 17.4 % (11.5-15.5)
[2022-11-17 07:10] LABS: INTERNATIONAL NORMALIZED RATIO 1.5 RATIO (0.7-1.3); PROTHROMBIN TIME 13.8 SECONDS (9.0-12.5)
[2022-11-17 07:14] LABS: ALBUMIN 2.5 g/dL (3.2-5.0); ALKALINE PHOSPHATASE 94 u/l (38-126); ANION GAP 12 (6-22 (CALC)); BILIRUBIN, TOTAL 1.8 mg/dL (0.2-1.3); BUN 23 mg/dL (8-23); BUN/CREATININE RATIO 30 (12-20 (CALC)); CARBON DIOXIDE 19 mmol/l (22-30); CHLORIDE 111 mmol/l (95-108); CREATININE 0.8 mg/dL (0.7-1.3); GFR FOR AFR.AMER. > 60 ML/MIN (>=60 (CALC)); GFR OTHER RACES > 60 ML/MIN (>=60 (CALC)); SGOT/AST 36 u/l (19-48); SODIUM 138 mmol/l (137-146); TOTAL PROTEIN 5.7 g/dL (6.3-8.2)
[2022-11-18] VITALS (51 sets, daily range): BP systolic 86–128; BP diastolic 45–73
[2022-11-18 12:48] LABS: BASO% 0.4 % (0-3); HEMATOCRIT 36.4 % (39.0-50.0); HEMOGLOBIN 11.6 g/dl (14.0-18.0); IMMATURE GRANULOCYTES 0.7 % (0.0-5.0); LYMPH% 4.7 % (15-41); MEAN CELL VOLUME 82.7 fL CALC (80.0-100.0); MEAN CORPUSCULAR HGB 26.4 pG CALC (26.0-32.0); MEAN CORPUSCULAR HGB CONC 31.9 g/dL CAL (32.0-36.0); MONO% 5.6 % (2-13); NEUT# 8.77 thou/uL (1.82-7.42); NEUT% 87.6 % (42-76); RED BLOOD COUNT 4.4 mill/uL (4.70-6.10); RED CELL DISTRI WIDTH 17.2 % (11.5-15.5)
[2022-11-18 13:03] LABS: ALBUMIN 2.6 g/dL (3.2-5.0); ALKALINE PHOSPHATASE 111 u/l (38-126); ANION GAP 12 (6-22 (CALC)); BUN 17 mg/dL (8-23); BUN/CREATININE RATIO 21 (12-20 (CALC)); CARBON DIOXIDE 18 mmol/l (22-30); CHLORIDE 107 mmol/l (95-108); CREATININE 0.8 mg/dL (0.7-1.3); GFR FOR AFR.AMER. > 60 ML/MIN (>=60 (CALC)); GFR OTHER RACES > 60 ML/MIN (>=60 (CALC)); POTASSIUM 3.7 mmol/l (3.5-5.1); SGOT/AST 50 u/l (19-48); SODIUM 134 mmol/l (137-146); TOTAL PROTEIN 5.8 g/dL (6.3-8.2)
[2022-11-18 13:21] LABS: BILIRUBIN, TOTAL 0.9 mg/dL (0.2-1.3)
[2022-11-19] VITALS (22 sets, daily range): BP systolic 96–119; BP diastolic 45–70
[2022-11-19 11:32] LABS: BASO% 0.4 % (0-3); EOS% 1.6 % (0-8); HEMATOCRIT 32.4 % (39.0-50.0); HEMOGLOBIN 10.4 g/dl (14.0-18.0); IMMATURE GRANULOCYTES 1.2 % (0.0-5.0); MEAN CELL VOLUME 82.9 fL CALC (80.0-100.0); MEAN CORPUSCULAR HGB 26.6 pG CALC (26.0-32.0); MEAN CORPUSCULAR HGB CONC 32.1 g/dL CAL (32.0-36.0); MONO% 7.2 % (2-13); NEUT# 6.54 thou/uL (1.82-7.42); NEUT% 84.6 % (42-76); RED BLOOD COUNT 3.91 mill/uL (4.70-6.10); RED CELL DISTRI WIDTH 17.2 % (11.5-15.5)
[2022-11-19 11:46] LABS: ALBUMIN 2.3 g/dL (3.2-5.0); ALKALINE PHOSPHATASE 107 u/l (38-126); ANION GAP 8 (6-22 (CALC)); BILIRUBIN, TOTAL 0.9 mg/dL (0.2-1.3); BUN 16 mg/dL (8-23); BUN/CREATININE RATIO 20 (12-20 (CALC)); CHLORIDE 102 mmol/l (95-108); CREATININE 0.8 mg/dL (0.7-1.3); GFR FOR AFR.AMER. > 60 ML/MIN (>=60 (CALC)); GFR OTHER RACES > 60 ML/MIN (>=60 (CALC)); POTASSIUM 3.4 mmol/l (3.5-5.1); SGOT/AST 45 u/l (19-48); SODIUM 133 mmol/l (137-146); TOTAL PROTEIN 5.5 g/dL (6.3-8.2)
[2022-11-19 11:48] LABS: CARBON DIOXIDE 26 mmol/l (22-30)
[2022-11-20] VITALS (20 sets, daily range): BP systolic 54–111; BP diastolic 38–64
[2022-11-20 07:39] LABS: BASO% 0.5 % (0-3); EOS% 2.3 % (0-8); HEMOGLOBIN 12.1 g/dl (14.0-18.0); IMMATURE GRANULOCYTES 2.1 % (0.0-5.0); LYMPH% 8.4 % (15-41); MEAN CELL VOLUME 82.9 fL CALC (80.0-100.0); MEAN CORPUSCULAR HGB 26.1 pG CALC (26.0-32.0); MEAN CORPUSCULAR HGB CONC 31.5 g/dL CAL (32.0-36.0); MONO% 7.9 % (2-13); NEUT# 3.4 thou/uL (1.82-7.42); NEUT% 78.8 % (42-76); RED BLOOD COUNT 4.63 mill/uL (4.70-6.10); RED CELL DISTRI WIDTH 17.2 % (11.5-15.5)
[2022-11-20 07:46] LABS: HEMATOCRIT 38.4 % (39.0-50.0)
[2022-11-20 07:50] LABS: ALBUMIN 2.4 g/dL (3.2-5.0); ALKALINE PHOSPHATASE 101 u/l (38-126); ANION GAP 8 (6-22 (CALC)); BUN 17 mg/dL (8-23); BUN/CREATININE RATIO 22 (12-20 (CALC)); CARBON DIOXIDE 26 mmol/l (22-30); CHLORIDE 103 mmol/l (95-108); CREATININE 0.8 mg/dL (0.7-1.3); GFR FOR AFR.AMER. > 60 ML/MIN (>=60 (CALC)); GFR OTHER RACES > 60 ML/MIN (>=60 (CALC)); MAGNESIUM 1.7 mg/dL (1.6-2.3); POTASSIUM 3.8 mmol/l (3.5-5.1); SGOT/AST 39 u/l (19-48); SODIUM 134 mmol/l (137-146); TOTAL PROTEIN 5.8 g/dL (6.3-8.2)
[2022-11-21] VITALS (22 sets, daily range): BP systolic 90–124; BP diastolic 47–72
[2022-11-21 04:42] LABS: BASO% 0.6 % (0-3); EOS% 2.1 % (0-8); IMMATURE GRANULOCYTES 1.7 % (0.0-5.0); LYMPH% 8.5 % (15-41); MEAN CELL VOLUME 83.2 fL CALC (80.0-100.0); MEAN CORPUSCULAR HGB 27.2 pG CALC (26.0-32.0); MEAN CORPUSCULAR HGB CONC 32.6 g/dL CAL (32.0-36.0); MONO% 8.5 % (2-13); NEUT# 3.71 thou/uL (1.82-7.42); NEUT% 78.6 % (42-76); RED BLOOD COUNT 3.46 mill/uL (4.70-6.10)
[2022-11-21 04:48] LABS: HEMATOCRIT 28.8 % (39.0-50.0); HEMOGLOBIN 9.4 g/dl (14.0-18.0)
[2022-11-21 04:51] LABS: ALBUMIN 2.3 g/dL (3.2-5.0); ALKALINE PHOSPHATASE 101 u/l (38-126); ANION GAP 7 (6-22 (CALC)); BILIRUBIN, TOTAL 0.8 mg/dL (0.2-1.3); BUN 16 mg/dL (8-23); BUN/CREATININE RATIO 23 (12-20 (CALC)); CARBON DIOXIDE 29 mmol/l (22-30); CHLORIDE 99 mmol/l (95-108); CREATININE 0.7 mg/dL (0.7-1.3); GFR FOR AFR.AMER. > 60 ML/MIN (>=60 (CALC)); GFR OTHER RACES > 60 ML/MIN (>=60 (CALC)); MAGNESIUM 1.7 mg/dL (1.6-2.3); POTASSIUM 3.6 mmol/l (3.5-5.1); SGOT/AST 36 u/l (19-48); SODIUM 132 mmol/l (137-146); TOTAL PROTEIN 5.6 g/dL (6.3-8.2)
[2022-11-21 11:02] LABS: HEMATOCRIT 32.7 % (39.0-50.0); HEMOGLOBIN 10.5 g/dl (14.0-18.0); MEAN CORPUSCULAR HGB 26.6 pG CALC (26.0-32.0); MEAN CORPUSCULAR HGB CONC 32.1 g/dL CAL (32.0-36.0); RED BLOOD COUNT 3.94 mill/uL (4.70-6.10); RED CELL DISTRI WIDTH 17.4 % (11.5-15.5)
== END 2022-11-21 19:43 | disposition short-term general hospital (02) | DRG 871 ==
LOC: ED 02:31 → ED-I 05:39 → ED 06:01 → ICU 06:02
PROVIDERS: Emergency Medicine; Student in an Organized Health Care Education/Training Program; ADMIT Internal Medicine; ATTEND Internal Medicine
PROC: 00JU3ZZ Inspection of Spinal Canal, Percutaneous Approach (ICD-10-PCS; principal; 2022-11-16)
PROC: 0T9B70Z Drainage of Bladder with Drainage Device, Via Natural or Artificial Opening (ICD-10-PCS; 2022-11-16)
PROC: 009U3ZX Drainage of Spinal Canal, Percutaneous Approach, Diagnostic (ICD-10-PCS; 2022-11-16)
PROC: B01BZZZ Fluoroscopy of Spinal Cord (ICD-10-PCS; 2022-11-16)
PROC: 02HV33Z Insertion of Infusion Device into Superior Vena Cava, Percutaneous Approach (ICD-10-PCS; 2022-11-16)
PROC: B518ZZA Fluoroscopy of Superior Vena Cava, Guidance (ICD-10-PCS; 2022-11-16)
PROC: 3E043XZ Introduction of Vasopressor into Central Vein, Percutaneous Approach (ICD-10-PCS; 2022-11-16)
DX: A41.01 Sepsis due to Methicillin susceptible Staphylococcus aureus (principal); G93.41 Metabolic encephalopathy; R65.21 Severe sepsis with septic shock; I33.0 Acute and subacute infective endocarditis; S32.040A Wedge compression fracture of fourth lumbar vertebra, initial encounter for closed fracture; E87.20 Acidosis, unspecified; N39.0 Urinary tract infection, site not specified; N17.9 Acute kidney failure, unspecified; M46.26 Osteomyelitis of vertebra, lumbar region; R09.02 Hypoxemia; I10 Essential (primary) hypertension; F41.9 Anxiety disorder, unspecified; K21.9 Gastro-esophageal reflux disease without esophagitis; F10.10 Alcohol abuse, uncomplicated; I95.9 Hypotension, unspecified; B19.20 Unspecified viral hepatitis C without hepatic coma; F32.A Depression, unspecified; T14.8XXA Other injury of unspecified body region, initial encounter; M47.817 Spondylosis without myelopathy or radiculopathy, lumbosacral region; R33.9 Retention of urine, unspecified; K70.31 Alcoholic cirrhosis of liver with ascites; F17.200 Nicotine dependence, unspecified, uncomplicated; W19.XXXA Unspecified fall, initial encounter; Z87.440 Personal history of urinary (tract) infections; Z91.81 History of falling; Z87.19 Personal history of other diseases of the digestive system; Z86.14 Personal history of Methicillin resistant Staphylococcus aureus infection; Z74.01 Bed confinement status; Z20.822 Contact with and (suspected) exposure to COVID-19
CPT/HCPCS: A9579; J0131; J0133; J0690; J1650